=== PATIENT | female | born 1935 | race Caucasian/White ===

== ENCOUNTER 2019-05-04 11:03 | Inpatient (IN) ==
[~2019-05-04 11:03] MED LIST: ASPIRIN 325 MG TABLET PO ONE; DEXTROSE 5% NACL 0.45% 1,000 ML IV SCH; DIAZEPAM 5 MG TABLET PO ONE; MAGNESIUM SULF RIDER 2 GM in PREMIX 1 EACH IV PRN; POTASSIUM CHLORIDE RIDER 10 MEQ in PREMIX 1 EACH IV PRN; diphenhydrAMINE CAP 25 MG CAPSULE PO ONE
[2019-05-04] MEDS ORDERED: diphenhydrAMINE CAP 25 MG CAPSULE ONE (12:06)
[2019-05-04] MEDS ORDERED: DIAZEPAM 5 MG TABLET ONE (12:06)
[2019-05-04 12:13] LABS: Basophils # 0.1 10*3/uL (0.0-0.2); Basophils % 0.9 % (0.0-0.8); Eosinophils # 0.1 10*3/uL (0.0-0.87); Eosinophils % 1.7 % (0.00-10.9); Hematocrit 36.4 VOL% (35.7-47.0); Hemoglobin 11.7 GM/DL (12.0-16.0); Immature Granulocytes % 0.4 %; Immature Granulocytes Absolute 0.02 #; Lymphocytes # 1.4 10*3/uL (1.4-4.0); Lymphocytes % 26.5 % (21.3-54.2); Mean Corpuscular HGB Conc 32.1 GM/DL (32-36); Mean Corpuscular Volume 89.4 FL (87-102); Mean Platelet Volume 10.2 FL (9.6-12.0); Monocytes % 10.6 % (1.7-12.7); Neutrophils % 59.9 % (38.7-73.9); Platelet Count 259 T/CUMM (130-400); Red Blood Count 4.07 MC/CUMM (3.8-5.5); Red Cell Distribution Width 13.3 % (9.3-17.3); White Blood Count 5.3 T/CUMM (4-12)
[2019-05-04 12:30] LABS: Calcium 8.9 MG/DL (8.5-10.1)
[2019-05-04] MEDS ORDERED: LIDOCAINE 1%/EPI INJ 20 ML VIAL ONE (13:16)
[2019-05-04] MEDS ORDERED: HEPARIN/NACL 0.9% 2 UNITS/ML 1,000 ML IV ONE (13:16)
[2019-05-04] MEDS ORDERED: MIDAZOLAM 2 MG/2 ML VIAL ONE (13:29)
[2019-05-04] MEDS ORDERED: fentaNYL 100 MCG/2 ML VIAL ONE (13:29)
[2019-05-04] MEDS ORDERED: HYDROmorphone 2 MG/1 ML VIAL ONE (13:44)
[2019-05-04] MEDS ORDERED: diphenhydrAMINE 50 MG/1 ML VIAL ONE (13:48)
[2019-05-04] MEDS ORDERED: HEPARIN 5,000 UNIT/1 ML VIAL ONE (14:08)
[2019-05-04] MEDS ORDERED: hydrALAZINE 20 MG/1 ML VIAL ONE (14:10)
[2019-05-04] MEDS ORDERED: CLOPIDOGREL 300 MG TABLET ONE (14:23)
[2019-05-04] MEDS ORDERED: cloNIDine 0.1 MG TABLET PO PRN (15:00)
[2019-05-04] MEDS ORDERED: SODIUM CHLORIDE 0.9% 500 ML IV ONE (20:08)
[2019-05-04] MEDS: SERTRALINE 25 MG TABLET PO SCH (20:28)
[2019-05-04] MEDS: ALPRAZolam 0.5 MG TABLET PO SCH (20:28)
[2019-05-04] MEDS: SIMVASTATIN 40 MG TABLET PO SCH (20:28)
[2019-05-04] MEDS ORDERED: METOPROLOL SUCCINATE XL 25 MG TABLET PO SCH (21:00)
[2019-05-04 21:17] LABS: Hematocrit 36.2 VOL% (35.7-47.0); Hemoglobin 11.7 GM/DL (12.0-16.0)
[2019-05-05 04:51] LABS: Basophils # 0.1 10*3/uL (0.0-0.2); Basophils % 0.9 % (0.0-0.8); Eosinophils # 0.1 10*3/uL (0.0-0.87); Eosinophils % 1.6 % (0.00-10.9); Hematocrit 34.3 VOL% (35.7-47.0); Immature Granulocytes % 0.5 %; Immature Granulocytes Absolute 0.03 #; Lymphocytes # 1.2 10*3/uL (1.4-4.0); Lymphocytes % 19.5 % (21.3-54.2); Mean Corpuscular HGB Conc 32.1 GM/DL (32-36); Mean Corpuscular Volume 89.1 FL (87-102); Mean Platelet Volume 9.9 FL (9.6-12.0); Neutrophils % 67.5 % (38.7-73.9); Platelet Count 240 T/CUMM (130-400); Red Blood Count 3.85 MC/CUMM (3.8-5.5); Red Cell Distribution Width 13.3 % (9.3-17.3); White Blood Count 6.3 T/CUMM (4-12)
[2019-05-05 05:05] LABS: Calcium 8.3 MG/DL (8.5-10.1); Osmolality,Calculated 271.8 MOS/KG (273-304)
[2019-05-05] MEDS: VALSARTAN 160 MG TABLET PO SCH (09:01)
[2019-05-05] MEDS: ASPIRIN EC 81 MG TABLET PO SCH (09:01)
[2019-05-05] MEDS: CLOPIDOGREL 75 MG TABLET PO SCH (09:02)
[2019-05-05] MEDS: METOCLOPRAMIDE 10 MG TABLET PO SCH (09:03)
[2019-05-05] MEDS: PANTOPRAZOLE 40 MG TABLET PO SCH (09:03)
[2019-05-05] MEDS: SERTRALINE 25 MG TABLET PO SCH ×2 (09:03→21:15)
[2019-05-05] MEDS: LINACLOTIDE 145 MCG CAPSULE PO SCH (09:20)
[2019-05-05] MEDS ORDERED: METOPROLOL SUCCINATE XL 25 MG TABLET PO SCH (09:25)
[2019-05-05] MEDS ORDERED: ceFAZolin 1,000 MG VIAL IRRIG ONE (10:41)
[2019-05-05] MEDS ORDERED: ceFAZolin 1,000 MG in SYRINGE 1 EACH IV ONE (10:41)
[2019-05-05] MEDS ORDERED: diphenhydrAMINE CAP 25 MG CAPSULE PO ONE (10:41)
[2019-05-05] MEDS ORDERED: DIAZEPAM 5 MG TABLET PO ONE (10:41)
[2019-05-05] MEDS ORDERED: ceFAZolin 1,000 MG VIAL ONE (12:19)
[2019-05-05] MEDS ORDERED: fentaNYL 100 MCG/2 ML VIAL ONE (12:34)
[2019-05-05] MEDS ORDERED: MIDAZOLAM 2 MG/2 ML VIAL ONE (12:34)
[2019-05-05] MEDS ORDERED: LIDOCAINE 1% 20 ML VIAL ONE (12:44)
[2019-05-05] MEDS ORDERED: TISSUE ADHESIVE 1 EACH APPLICATOR TOP ONE (12:44)
[2019-05-05] MEDS ORDERED: HYDROmorphone 2 MG/1 ML VIAL ONE (13:04)
[2019-05-05] MEDS ORDERED: KETOROLAC 30 MG/1 ML VIAL IV PRN (14:11)
[2019-05-05] MEDS ORDERED: HYDROmorphone 2 MG/1 ML VIAL IV PRN (14:11)
[2019-05-05] MEDS: SIMVASTATIN 40 MG TABLET PO SCH (21:15)
[2019-05-05] MEDS: ALPRAZolam 0.5 MG TABLET PO SCH (21:15)
[2019-05-06 06:04] LABS: Basophils # 0.1 10*3/uL (0.0-0.2); Basophils % 0.4 % (0.0-0.8); Eosinophils % 0.1 % (0.00-10.9); Hematocrit 31.9 VOL% (35.7-47.0); Hemoglobin 10.3 GM/DL (12.0-16.0); Immature Granulocytes % 0.4 %; Immature Granulocytes Absolute 0.05 #; Lymphocytes # 0.7 10*3/uL (1.4-4.0); Lymphocytes % 5.6 % (21.3-54.2); Mean Corpuscular HGB Conc 32.3 GM/DL (32-36); Mean Corpuscular Volume 88.1 FL (87-102); Mean Platelet Volume 10.5 FL (9.6-12.0); Monocytes % 7.2 % (1.7-12.7); Neutrophils % 86.3 % (38.7-73.9); Platelet Count 222 T/CUMM (130-400); Red Blood Count 3.62 MC/CUMM (3.8-5.5); Red Cell Distribution Width 13.3 % (9.3-17.3); White Blood Count 13.1 T/CUMM (4-12)
[2019-05-06 06:48] LABS: Calcium 8.1 MG/DL (8.5-10.1); Osmolality,Calculated 265.4 MOS/KG (273-304)
[2019-05-06] MEDS: METOCLOPRAMIDE 10 MG TABLET PO SCH (08:15)
[2019-05-06] MEDS: LINACLOTIDE 145 MCG CAPSULE PO SCH (08:15)
[2019-05-06] MEDS: ASPIRIN EC 81 MG TABLET PO SCH (08:15)
[2019-05-06] MEDS: VALSARTAN 160 MG TABLET PO SCH (08:15)
[2019-05-06] MEDS: CLOPIDOGREL 75 MG TABLET PO SCH (08:15)
[2019-05-06] MEDS: PANTOPRAZOLE 40 MG TABLET PO SCH (08:15)
[2019-05-06] MEDS: SERTRALINE 25 MG TABLET PO SCH (08:17)
[2019-05-06] MEDS ORDERED: ACETAMINOPHEN 325 MG TABLET PO PRN (08:29)
[2019-05-06] MEDS ORDERED: INFLUENZA VIRUS VACCINE 0.5 ML SYRINGE IM ONE (12:10)
[2019-05-06 12:39] VITALS: BP 134/54
== END 2019-05-06 14:00 | disposition home or self-care (01) | DRG 243 ==
LOC: N.CL 11:03 → N.TELEN 14:52
PROVIDERS: ADMIT Internal Medicine Interventional Cardiology; ATTEND Internal Medicine Interventional Cardiology

== ENCOUNTER 2021-05-18 21:09 | Inpatient (IN) ==
[2021-05-18] MEDS ORDERED: ACETAMINOPHEN 325 MG TABLET PO PRN (22:39)
[2021-05-18] MEDS ORDERED: ONDANSETRON 4 MG/2 ML VIAL IV PRN (22:39)
[2021-05-18] MEDS ORDERED: ENOXAPARIN 30 MG/0.3 ML SYRINGE SUBCUT STA (22:43)
[2021-05-18] MEDS ORDERED: ENOXAPARIN 80 MG/0.8 ML SYRINGE SUBCUT STA (22:44)
[2021-05-18] MEDS ORDERED: SODIUM CHLORIDE 0.9% 1,000 ML IV STA (22:57)
[2021-05-19] MEDS: ALPRAZolam 0.5 MG TABLET PO PRN (02:09)
[2021-05-19 07:47] LABS: Basophils % 0.3 % (0.0-0.8); Eosinophils % 0.1 % (0.00-10.9); Hematocrit 32.8 VOL% (35.7-47.0); Hemoglobin 11.2 GM/DL (12.0-16.0); Immature Granulocytes % 0.3 %; Immature Granulocytes Absolute 0.03 #; Lymphocytes # 1.2 10*3/uL (1.4-4.0); Mean Corpuscular HGB Conc 34.1 GM/DL (32-36); Mean Corpuscular Volume 78.5 FL (87-102); Mean Platelet Volume 9.3 FL (9.6-12.0); Monocytes % 7.4 % (1.7-12.7); Neutrophils % 79.9 % (38.7-73.9); Platelet Count 256 T/CUMM (130-400); Red Blood Count 4.18 MC/CUMM (3.8-5.5); Red Cell Distribution Width 14.3 % (9.3-17.3); White Blood Count 9.6 T/CUMM (4-12)
[2021-05-19 08:05] LABS: Albumin 3.1 G/DL (3.4-5.0); Calcium 8.2 MG/DL (8.5-10.1); Osmolality,Calculated 246.9 MOS/KG (273-304); Potassium 2.8 MMOL/L (3.5-5.1); Risk Ratio 2.47; Total Protein 5.5 G/DL (6.4-8.2); VLDL Cholesterol 10.8 MG/DL
[2021-05-19] MEDS ORDERED: FUROSEMIDE 80 MG TABLET PO SCH (09:00)
[2021-05-19] MEDS: CLOPIDOGREL 75 MG TABLET PO SCH (09:32)
[2021-05-19] MEDS: APIXABAN 2.5 MG TABLET PO SCH ×2 (09:32→20:26)
[2021-05-19] MEDS: PANTOPRAZOLE 40 MG TABLET PO SCH (09:33)
[2021-05-19] MEDS: AMIODARONE 200 MG TABLET PO SCH ×2 (09:33→20:27)
[2021-05-19] MEDS: SERTRALINE 25 MG TABLET PO SCH ×2 (09:33→20:26)
[2021-05-19] MEDS ORDERED: POTASSIUM CHLORIDE RIDER 10 MEQ/100 ML PREMIX IV PRN (09:41)
[2021-05-19] MEDS: PROPRANOLOL 10 MG TABLET PO SCH (09:43)
[2021-05-19] MEDS: VALSARTAN 80 MG TABLET PO SCH (09:43)
[2021-05-19] MEDS: FUROSEMIDE 40 MG TABLET PO SCH (09:43)
[2021-05-19] MEDS ORDERED: TOLVAPTAN 15 MG TABLET PO ONE (09:44)
[2021-05-19] MEDS: POTASSIUM CHLORIDE 20 MEQ TABLET PO SCH ×2 (10:41→20:26)
[2021-05-19] MEDS: SODIUM CHLORIDE 0.9% 1,000 ML IV SCH ×2 (10:42→13:21)
[2021-05-19 11:01] LABS: Calcium 8.3 MG/DL (8.5-10.1); Osmolality,Calculated 239.5 MOS/KG (273-304); Potassium 2.9 MMOL/L (3.5-5.1)
[2021-05-20] MEDS: SODIUM CHLORIDE 0.9% 1,000 ML IV SCH ×2 (03:50→11:07)
[2021-05-20 05:38] LABS: Basophils % 0.4 % (0.0-0.8); Eosinophils % 0.3 % (0.00-10.9); Hematocrit 34.1 VOL% (35.7-47.0); Hemoglobin 11.5 GM/DL (12.0-16.0); Immature Granulocytes % 0.4 %; Immature Granulocytes Absolute 0.04 #; Lymphocytes % 10.1 % (21.3-54.2); Mean Corpuscular HGB Conc 33.7 GM/DL (32-36); Mean Platelet Volume 9.7 FL (9.6-12.0); Monocytes % 9.4 % (1.7-12.7); Neutrophils % 79.4 % (38.7-73.9); Platelet Count 257 T/CUMM (130-400); Red Blood Count 4.26 MC/CUMM (3.8-5.5); Red Cell Distribution Width 14.6 % (9.3-17.3); White Blood Count 9.4 T/CUMM (4-12)
[2021-05-20 05:59] LABS: Calcium 8.8 MG/DL (8.5-10.1); Osmolality,Calculated 256.4 MOS/KG (273-304); Potassium 4.6 MMOL/L (3.5-5.1)
[2021-05-20] MEDS: AMIODARONE 200 MG TABLET PO SCH ×2 (09:41→20:43)
[2021-05-20] MEDS: APIXABAN 2.5 MG TABLET PO SCH ×2 (09:42→20:43)
[2021-05-20] MEDS: VALSARTAN 80 MG TABLET PO SCH (09:42)
[2021-05-20] MEDS: PROPRANOLOL 10 MG TABLET PO SCH (09:43)
[2021-05-20] MEDS: FUROSEMIDE 40 MG TABLET PO SCH (09:44)
[2021-05-20] MEDS: PANTOPRAZOLE 40 MG TABLET PO SCH (09:45)
[2021-05-20] MEDS: CLOPIDOGREL 75 MG TABLET PO SCH (09:45)
[2021-05-20] MEDS: SERTRALINE 25 MG TABLET PO SCH ×2 (09:46→20:43)
[2021-05-20] MEDS: POTASSIUM CHLORIDE 20 MEQ TABLET PO SCH (10:34)
[2021-05-20] MEDS ORDERED: TOLVAPTAN 15 MG TABLET PO ONE (10:35)
[2021-05-20] MEDS: POTASSIUM CHLORIDE 20 MEQ PACK PO SCH (20:42)
[2021-05-20] MEDS: ALPRAZolam 0.5 MG TABLET PO PRN (20:43)
[2021-05-20] MEDS ORDERED: ZALEPLON 5 MG CAPSULE PO SCH (21:00)
[2021-05-21 06:26] LABS: Basophils % 0.5 % (0.0-0.8); Eosinophils # 0.1 10*3/uL (0.0-0.87); Eosinophils % 1.1 % (0.00-10.9); Hematocrit 34.9 VOL% (35.7-47.0); Hemoglobin 10.8 GM/DL (12.0-16.0); Immature Granulocytes % 0.5 %; Immature Granulocytes Absolute 0.04 #; Lymphocytes # 1.3 10*3/uL (1.4-4.0); Lymphocytes % 15.8 % (21.3-54.2); Mean Corpuscular HGB Conc 30.9 GM/DL (32-36); Mean Corpuscular Volume 84.1 FL (87-102); Mean Platelet Volume 9.6 FL (9.6-12.0); Monocytes % 8.9 % (1.7-12.7); Neutrophils % 73.2 % (38.7-73.9); Platelet Count 247 T/CUMM (130-400); Red Blood Count 4.15 MC/CUMM (3.8-5.5); Red Cell Distribution Width 15.4 % (9.3-17.3)
[2021-05-21 06:56] LABS: Calcium 8.8 MG/DL (8.5-10.1); Osmolality,Calculated 271.2 MOS/KG (273-304); Potassium 5.3 MMOL/L (3.5-5.1)
[2021-05-21] MEDS ORDERED: SODIUM POLYSTYRENE SULFATE 15 GM/60 ML BOTTLE PO STA (07:39)
[2021-05-21] MEDS: SERTRALINE 25 MG TABLET PO SCH (08:39)
[2021-05-21] MEDS: VALSARTAN 80 MG TABLET PO SCH (08:39)
[2021-05-21] MEDS: PANTOPRAZOLE 40 MG TABLET PO SCH (08:39)
[2021-05-21] MEDS: FUROSEMIDE 40 MG TABLET PO SCH (08:39)
[2021-05-21] MEDS: CLOPIDOGREL 75 MG TABLET PO SCH (08:39)
[2021-05-21] MEDS: APIXABAN 2.5 MG TABLET PO SCH (08:39)
[2021-05-21] MEDS: PROPRANOLOL 10 MG TABLET PO SCH (08:40)
[2021-05-21] MEDS: AMIODARONE 200 MG TABLET PO SCH (08:40)
[2021-05-21] MEDS: POTASSIUM CHLORIDE 20 MEQ PACK PO SCH (08:52)
[2021-05-21 10:36] VITALS: BP 98/72
[2021-05-21] MEDS: SODIUM CHLORIDE 0.9% 1,000 ML IV SCH (11:52)
== END 2021-05-21 13:10 | disposition home or self-care (01) | DRG 641 ==
LOC: EDBD → EDUNIT# → N.ED 21:09 → N.EDINP 23:45 → N.TELEN 05-19 00:27
PROVIDERS: ADMIT Internal Medicine; ATTEND Internal Medicine